=== PATIENT | male | born 1950 | race Caucasian/White ===

== ENCOUNTER → 2019-06-21 | Outpatient (CLI) | payer OTHER ==
[2019-06-21 12:57] LABS: Urine WBC None Seen /hpf (0 - 3)
[2019-06-21 13:01] LABS: Eosinophils # (auto) 0.3 uL; Eosinophils % (auto) 4.4 % (0.0-7.0); Hemoglobin 14.6 g/dL (13.5-17.5); Lymphocytes # (auto) 1.3 uL; Monocytes # (auto) 0.9 uL
[2019-06-21 13:02] LABS: Basophils # (auto) 0.1 uL; Hematocrit 44.7 % (41.0-53.0); Lymphocytes % (auto) 18.9 % (10.0-50.0); Mean Corpuscular Hemoglobin 26.3 pg (28.0-32.0); Mean Corpuscular Hgb Conc. 32.6 g/dL (32.0-36.0); Mean Corpuscular Volume 80.5 fL (80.0-100.0); Neutrophils # (auto) 4.4 uL; Neutrophils % (auto) 61.7 % (37.0-80.0); Platelet Count (auto) 394 10^3/uL (140-450); Red Blood Cells 5.56 10^6/uL (4.5-5.90); Red Cell Distribution Width 19.3 % (11.8-14.3); White Blood Cell 7.1 10^3/uL (4.4-10.8)
[2019-06-21 13:09] LABS: Urine Bacteria NONE SEEN /hpf (None Seen); Urine Blood Negative /uL (Negative); Urine Specific Gravity 1.005 (1.001-1.035)
[2019-06-21 13:30] LABS: Calcium 9.4 mg/dL (8.5-10.1); Potassium 4.8 mmol/L (3.5-5.1)
[2019-06-21 13:36] LABS: BUN/Creatinine Ratio 4.2; Bilirubin, Total 0.4 mg/dL (0.2-1.0)
== END | disposition home or self-care (01) ==
LOC: LAB 12:31
PROVIDERS: ATTEND Internal Medicine
DX: Z12.11 Encounter for screening for malignant neoplasm of colon (principal); J44.9 Chronic obstructive pulmonary disease, unspecified; E78.5 Hyperlipidemia, unspecified; E11.22 Type 2 diabetes mellitus with diabetic chronic kidney disease; N18.9 Chronic kidney disease, unspecified
CPT/HCPCS: 36415; 80053; 80061; 81001; 82043; 83036; 84153; 84154; 85025

== ENCOUNTER 2020-10-25 22:34 | Inpatient (IN) | payer OTHER ==
[~2020-10-25] VITALS: Ht 175.3 cm; Wt 88.6 kg
[2020-10-26] VITALS (7 sets, daily range): BP systolic 108–152; BP diastolic 66–80
[2020-10-26] MEDS ORDERED: ONDANSETRON HCL 4 MG/2 ML VIAL IV PRN (03:15)
[2020-10-26] MEDS ORDERED: ACETAMINOPHEN 325 MG TAB PO PRN (03:15)
[2020-10-26] MEDS ORDERED: MORPHINE SULFATE INJECTION 2 MG/ML SYRG IV PRN (03:15)
[2020-10-26] MEDS ORDERED: DOCUSATE SOD 100 MG CAP PO PRN (03:15)
[2020-10-26] MEDS ORDERED: NITROGLYCERIN 0.4 MG SL TAB SL PRN (03:15)
[2020-10-26] MEDS ORDERED: SODIUM CHL 3% 500 ML IV ONE (03:30)
[2020-10-26] MEDS ORDERED: DEXTROSE (50%) 50ML SYRG IV PRN (03:30)
[2020-10-26 05:30] LABS: Basophils # (auto) 0 10 ^3/uL (0-0.2); Basophils % (auto) 0.5 % (0.0-2.0); Eosinophils # (auto) 0.1 10 ^3/uL (0-0.8); Eosinophils % (auto) 2.2 % (0.0-7.0); Hematocrit 34.8 % (41.0-53.0); Hemoglobin 12.6 g/dL (13.5-17.5); Lymphocytes # (auto) 0.7 10 ^3/uL (0.4-5.4); Mean Corpuscular Hemoglobin 29.3 pg (28.0-32.0); Mean Corpuscular Hgb Conc. 36.1 g/dL (32.0-36.0); Mean Corpuscular Volume 81.4 fL (80.0-100.0); Monocytes # (auto) 0.9 10 ^3/uL (0-1.3); Monocytes % (auto) 14.2 % (0.0-12.0); Neutrophils # (auto) 4.4 10 ^3/uL (1.6-8.6); Neutrophils % (auto) 71.1 % (37.0-80.0); Nucleated Red Blood Cells % 0.1 %; Red Blood Cells 4.28 10^6/uL (4.5-5.90); Red Cell Distribution Width 13.4 % (11.8-14.3); White Blood Cell 6.2 10^3/uL (4.4-10.8)
[2020-10-26 05:51] LABS: Albumin 3.8 g/dL (3.4-5.0); Calcium 9.1 mg/dL (8.5-10.1); Potassium 3.7 mmol/L (3.5-5.1)
[2020-10-26 05:57] LABS: BUN/Creatinine Ratio 10.3; Bilirubin, Total 1.2 mg/dL (0.2-1.0); Total Protein 7.3 g/dL (6.4-8.2)
[2020-10-26] MEDS: ACCU-CHEK COMFORT CURVE STRIP VI SCH ×2 (06:56→11:30)
[2020-10-26] MEDS: InsuLIN REG 1unit/0.01ml Soln (100units/ml) SC SCH ×2 (06:57→11:30)
[2020-10-26] MEDS ORDERED: ZINC SULFATE 220mg CAP or TAB PO SCH (10:00)
[2020-10-26] MEDS: CLOPIDOGREL BISULFATE 75 MG TAB PO SCH (10:00)
[2020-10-26 10:55] LABS: Basophils # (auto) 0.1 10 ^3/uL (0-0.2); Basophils % (auto) 1.4 % (0.0-2.0); Eosinophils # (auto) 0.2 10 ^3/uL (0-0.8); Eosinophils % (auto) 2.8 % (0.0-7.0); Hematocrit 34.9 % (41.0-53.0); Hemoglobin 12.5 g/dL (13.5-17.5); Lymphocytes # (auto) 0.6 10 ^3/uL (0.4-5.4); Lymphocytes % (auto) 10.5 % (10.0-50.0); Mean Corpuscular Hemoglobin 29.7 pg (28.0-32.0); Mean Corpuscular Hgb Conc. 35.9 g/dL (32.0-36.0); Mean Corpuscular Volume 82.8 fL (80.0-100.0); Monocytes # (auto) 0.9 10 ^3/uL (0-1.3); Monocytes % (auto) 16.5 % (0.0-12.0); Neutrophils # (auto) 3.8 10 ^3/uL (1.6-8.6); Neutrophils % (auto) 68.8 % (37.0-80.0); Red Blood Cells 4.22 10^6/uL (4.5-5.90); Red Cell Distribution Width 13.6 % (11.8-14.3); White Blood Cell 5.6 10^3/uL (4.4-10.8)
[2020-10-26 10:58] LABS: Albumin 3.8 g/dL (3.4-5.0); Calcium 9.2 mg/dL (8.5-10.1)
[2020-10-26 11:04] LABS: BUN/Creatinine Ratio 9.9; Bilirubin, Total 1.1 mg/dL (0.2-1.0); Total Protein 7.2 g/dL (6.4-8.2)
[2020-10-26] MEDS: ASPirin 81 mg TAB PO SCH (11:42)
[2020-10-26] MEDS: ASCORBIC ACID 500 MG TAB PO SCH ×2 (11:42→21:30)
[2020-10-26] MEDS: MULTIPLE VITAMIN TAB PO SCH (11:42)
[2020-10-26] MEDS: FAMOTIDINE 20 MG TAB PO SCH ×2 (11:42→21:30)
[2020-10-26] MEDS ORDERED: SODIUM CHLORIDE 0.9% 1,000 ML IV ONE (11:45)
[2020-10-26] MEDS: METOPROLOL TARTRATE 25 MG TAB PO SCH ×2 (11:51→21:30)
[2020-10-26] MEDS ORDERED: FENO145T27 PO (17:00)
[2020-10-26] MEDS: UREA 15gm PO Powder PKG PO SCH (21:29)
[2020-10-27 05:16] VITALS: BP 130/74
[2020-10-27 07:57] LABS: Basophils # (auto) 0.1 10 ^3/uL (0-0.2); Basophils % (auto) 1.4 % (0.0-2.0); Eosinophils # (auto) 0.2 10 ^3/uL (0-0.8); Eosinophils % (auto) 3.2 % (0.0-7.0); Hematocrit 34.3 % (41.0-53.0); Hemoglobin 11.8 g/dL (13.5-17.5); Lymphocytes # (auto) 0.9 10 ^3/uL (0.4-5.4); Lymphocytes % (auto) 16.2 % (10.0-50.0); Mean Corpuscular Hemoglobin 28.7 pg (28.0-32.0); Mean Corpuscular Hgb Conc. 34.6 g/dL (32.0-36.0); Mean Corpuscular Volume 83.1 fL (80.0-100.0); Monocytes # (auto) 0.9 10 ^3/uL (0-1.3); Monocytes % (auto) 15.7 % (0.0-12.0); Neutrophils # (auto) 3.6 10 ^3/uL (1.6-8.6); Neutrophils % (auto) 63.5 % (37.0-80.0); Red Blood Cells 4.12 10^6/uL (4.5-5.90); Red Cell Distribution Width 13.8 % (11.8-14.3); White Blood Cell 5.7 10^3/uL (4.4-10.8)
[2020-10-27 08:09] LABS: Potassium 3.8 mmol/L (3.5-5.1)
[2020-10-27 08:17] LABS: Albumin 3.7 g/dL (3.4-5.0); Bilirubin, Total 1.1 mg/dL (0.2-1.0); Calcium 9.4 mg/dL (8.5-10.1)
[2020-10-27 09:00] VITALS: BP 133/72
[2020-10-27] MEDS: ASPirin 81 mg TAB PO SCH (10:19)
[2020-10-27] MEDS: ASCORBIC ACID 500 MG TAB PO SCH ×2 (10:19→21:59)
[2020-10-27] MEDS: MULTIPLE VITAMIN TAB PO SCH (10:20)
[2020-10-27] MEDS: FAMOTIDINE 20 MG TAB PO SCH ×2 (10:20→21:59)
[2020-10-27] MEDS: UREA 15gm PO Powder PKG PO SCH (10:20)
[2020-10-27] MEDS: CLOPIDOGREL BISULFATE 75 MG TAB PO SCH (10:20)
[2020-10-27] MEDS: METOPROLOL TARTRATE 25 MG TAB PO SCH ×2 (10:20→21:59)
[2020-10-27 12:30] VITALS: BP 131/72
[2020-10-27] MEDS ORDERED: AZITHROMYCIN 250 MG TAB PO ONE (12:45)
[2020-10-27] MEDS ORDERED: cefTRIAXone 1GM/50ML D5W 50 ML IV ONE (12:45)
[2020-10-27] MEDS ORDERED: ALBUTEROL SULF 2.5 MG/0.5ML(0.5%) NEB SOLN NEB PRN (14:45)
[2020-10-27 15:37] VITALS: BP 131/72
[2020-10-27 17:00] VITALS: BP 124/57
[2020-10-27 21:13] LABS: Urine Bacteria NONE SEEN /hpf (None Seen); Urine Blood Negative /uL (Negative); Urine Specific Gravity 1.016 (1.001-1.035); Urine WBC <1 /hpf (0 - 3)
[2020-10-27 22:00] VITALS: BP 132/65
[2020-10-28 05:00] VITALS: BP 128/73
[2020-10-28 08:32] LABS: Albumin 3.9 g/dL (3.4-5.0); Calcium 9.6 mg/dL (8.5-10.1); Potassium 3.6 mmol/L (3.5-5.1)
[2020-10-28 08:34] LABS: BUN/Creatinine Ratio 26.5
[2020-10-28 08:36] LABS: Bilirubin, Total 0.8 mg/dL (0.2-1.0); Total Protein 7.3 g/dL (6.4-8.2)
[2020-10-28 09:00] VITALS: BP 123/63
[2020-10-28] MEDS ORDERED: UREA 15gm PO Powder PKG GT ONE (09:00)
[2020-10-28] MEDS: cefTRIAXone 1GM/50ML D5W 50 ML IV SCH (09:17)
[2020-10-28] MEDS: FAMOTIDINE 20 MG TAB PO SCH ×2 (09:17→21:59)
[2020-10-28] MEDS: CLOPIDOGREL BISULFATE 75 MG TAB PO SCH (09:18)
[2020-10-28] MEDS: MULTIPLE VITAMIN TAB PO SCH (09:18)
[2020-10-28] MEDS: ENOXAPARIN SOD 40 MG/0.4 ML SYRINGE SC SCH (09:18)
[2020-10-28] MEDS: ASCORBIC ACID 500 MG TAB PO SCH ×2 (09:18→21:59)
[2020-10-28] MEDS: AZITHROMYCIN 250 MG TAB PO SCH (09:18)
[2020-10-28] MEDS: ASPirin 81 mg TAB PO SCH (09:18)
[2020-10-28] MEDS: METOPROLOL TARTRATE 25 MG TAB PO SCH ×2 (09:19→21:59)
[2020-10-28 13:00] VITALS: BP 124/66
[2020-10-28] MEDS: HYDROcodone-ACET 5/325MG TAB PO PRN (15:44)
[2020-10-28 16:54] VITALS: BP 133/86
[2020-10-28 22:00] VITALS: BP 114/68
[2020-10-29 05:00] VITALS: BP 117/69
[2020-10-29 06:43] LABS: Calcium 8.9 mg/dL (8.5-10.1); Potassium 3.7 mmol/L (3.5-5.1)
[2020-10-29 06:49] LABS: Albumin 3.6 g/dL (3.4-5.0); BUN/Creatinine Ratio 22.8; Bilirubin, Total 0.7 mg/dL (0.2-1.0); Total Protein 6.8 g/dL (6.4-8.2)
[2020-10-29] MEDS ORDERED: UREA 15gm PO Powder PKG PO ONE (09:00)
[2020-10-29] MEDS: METOPROLOL TARTRATE 25 MG TAB PO SCH (09:23)
[2020-10-29] MEDS: cefTRIAXone 1GM/50ML D5W 50 ML IV SCH (09:23)
[2020-10-29] MEDS: ASPirin 81 mg TAB PO SCH (09:23)
[2020-10-29] MEDS: MULTIPLE VITAMIN TAB PO SCH (09:23)
[2020-10-29] MEDS: ASCORBIC ACID 500 MG TAB PO SCH (09:24)
[2020-10-29] MEDS: CLOPIDOGREL BISULFATE 75 MG TAB PO SCH (09:24)
[2020-10-29] MEDS: AZITHROMYCIN 250 MG TAB PO SCH (09:24)
[2020-10-29] MEDS: FAMOTIDINE 20 MG TAB PO SCH (09:24)
[2020-10-29] MEDS: ENOXAPARIN SOD 40 MG/0.4 ML SYRINGE SC SCH (09:25)
[2020-10-29 09:30] VITALS: BP 129/73
[2020-10-29] MEDS ORDERED: GABAPENTIN 400 MG CAP PO ONE (10:00)
[2020-10-29] MEDS: HYDROcodone-ACET 5/325MG TAB PO PRN (10:24)
[2020-10-29] MEDS ORDERED: AZIT500T PO (12:02)
[2020-10-29] MEDS ORDERED: ALBUAER3 IN (12:02)
[2020-10-29 13:00] VITALS: BP 104/70
[2020-10-29 15:31] VITALS: BP 104/70
== END 2020-10-29 16:05 | disposition home health service (06) | DRG 70 ==
LOC: TELE-WESTW 10-26 01:53
PROVIDERS: ADMIT Internal Medicine; ATTEND Internal Medicine
DX: G93.41 Metabolic encephalopathy (principal); J18.9 Pneumonia, unspecified organism; E22.2 Syndrome of inappropriate secretion of antidiuretic hormone; I10 Essential (primary) hypertension; R29.6 Repeated falls; E11.9 Type 2 diabetes mellitus without complications; I25.10 Atherosclerotic heart disease of native coronary artery without angina pectoris; J43.9 Emphysema, unspecified; F17.210 Nicotine dependence, cigarettes, uncomplicated; F43.10 Post-traumatic stress disorder, unspecified; I71.2 Thoracic aortic aneurysm, without rupture; Z95.5 Presence of coronary angioplasty implant and graft; Z79.4 Long term (current) use of insulin; Z82.49 Family history of ischemic heart disease and other diseases of the circulatory system; Z79.899 Other long term (current) drug therapy
CPT/HCPCS: 36415; 70450; 71045; 71250; 80053; 81001; 83036; 83930; 83935; 84300; 84439; 84443; 84550; 85025; 87081; G0378; J0696

== ENCOUNTER 2020-10-30 14:13 | Emergency (ER) | payer OTHER ==
[~2020-10-30] VITALS: Ht 180.3 cm; Wt 86.2 kg
[2020-10-30 14:13] VITALS: BP 100/53
[~2020-10-30 14:13] MED LIST: ALBUAER3 IN; AZIT500T PO; FENO145T27 PO
[2020-10-30] MEDS ORDERED: SODIUM CHLORIDE 0.9% 1,000 ML IV ONE ×2 (14:15)
[2020-10-30 14:39] LABS: Basophils # (auto) 0.2 10 ^3/uL (0-0.2); Basophils % (auto) 2.4 % (0.0-2.0); Eosinophils # (auto) 0.3 10 ^3/uL (0-0.8); Eosinophils % (auto) 3.6 % (0.0-7.0); Hematocrit 33.4 % (41.0-53.0); Hemoglobin 11.3 g/dL (13.5-17.5); Lymphocytes # (auto) 1.3 10 ^3/uL (0.4-5.4); Lymphocytes % (auto) 16.3 % (10.0-50.0); Mean Corpuscular Hemoglobin 28.5 pg (28.0-32.0); Mean Corpuscular Hgb Conc. 33.9 g/dL (32.0-36.0); Mean Corpuscular Volume 84.1 fL (80.0-100.0); Monocytes # (auto) 1.3 10 ^3/uL (0-1.3); Monocytes % (auto) 15.9 % (0.0-12.0); Neutrophils % (auto) 61.8 % (37.0-80.0); Nucleated Red Blood Cells % 0.1 %; Platelet Count (auto) 381 10^3/uL (140-450); Red Blood Cells 3.97 10^6/uL (4.5-5.90); Red Cell Distribution Width 13.8 % (11.8-14.3); White Blood Cell 8.1 10^3/uL (4.4-10.8)
[2020-10-30 14:53] LABS: Albumin 3.5 g/dL (3.4-5.0); BUN/Creatinine Ratio 19.4; Calcium 8.6 mg/dL (8.5-10.1); Potassium 3.7 mmol/L (3.5-5.1)
[2020-10-30 14:57] LABS: Bilirubin, Total 0.6 mg/dL (0.2-1.0); Total Protein 6.8 g/dL (6.4-8.2)
[2020-10-30] MEDS ORDERED: ASPirin 81 mg TAB PO ONE (17:45)
[2020-10-30] MEDS ORDERED: ENOXAPARIN SOD 100 MG/1 ML SYRINGE SC ONE (17:45)
== END 2020-10-30 18:17 | disposition left against medical advice (07) ==
LOC: EDBD 14:13 → ER 14:13
DX: I95.9 Hypotension, unspecified (principal); R77.8 Other specified abnormalities of plasma proteins; E87.1 Hypo-osmolality and hyponatremia; I10 Essential (primary) hypertension; I25.10 Atherosclerotic heart disease of native coronary artery without angina pectoris; E11.9 Type 2 diabetes mellitus without complications; N40.0 Benign prostatic hyperplasia without lower urinary tract symptoms; Z87.891 Personal history of nicotine dependence; Z79.899 Other long term (current) drug therapy
CPT/HCPCS: 36415; 80053; 84484; 85025; 93005

== ENCOUNTER → 2020-11-06 | Outpatient (CLI) | payer OTHER ==
[~2020-11-06] MED LIST changes: +ASPI-231 PO; +CLOP75TA70 PO; +COEN400C8 OR; +GABA100C9 PO; +METF-370 PO; +TAMS1CAP25 PO
== END | disposition home or self-care (01) ==
LOC: LAB 10:24
PROVIDERS: ATTEND Internal Medicine
DX: E11.22 Type 2 diabetes mellitus with diabetic chronic kidney disease (principal); N18.9 Chronic kidney disease, unspecified
CPT/HCPCS: 36415; 84295

== ENCOUNTER 2020-11-07 12:06 | Inpatient (IN) | payer OTHER ==
[~2020-11-07] VITALS: Ht 175.3 cm; Wt 85.4 kg
[~2020-11-07 12:06] MED LIST changes: -ASPI-231 PO; -CLOP75TA70 PO; -COEN400C8 OR; -GABA100C9 PO; -METF-370 PO; -TAMS1CAP25 PO
[2020-11-07 13:28] LABS: Basophils # (auto) 0.1 10 ^3/uL (0-0.2); Basophils % (auto) 0.9 % (0.0-2.0); Eosinophils # (auto) 0.1 10 ^3/uL (0-0.8); Eosinophils % (auto) 0.9 % (0.0-7.0); Hematocrit 30.5 % (41.0-53.0); Hemoglobin 10.5 g/dL (13.5-17.5); Lymphocytes # (auto) 0.7 10 ^3/uL (0.4-5.4); Mean Corpuscular Hemoglobin 28.9 pg (28.0-32.0); Mean Corpuscular Hgb Conc. 34.4 g/dL (32.0-36.0); Mean Corpuscular Volume 84.1 fL (80.0-100.0); Monocytes % (auto) 12.6 % (0.0-12.0); Neutrophils # (auto) 6.3 10 ^3/uL (1.6-8.6); Neutrophils % (auto) 76.6 % (37.0-80.0); Red Blood Cells 3.63 10^6/uL (4.5-5.90); Red Cell Distribution Width 14.9 % (11.8-14.3); White Blood Cell 8.3 10^3/uL (4.4-10.8)
[2020-11-07 13:43] LABS: Albumin 3.3 g/dL (3.4-5.0); BUN/Creatinine Ratio 9.6; Calcium 8.9 mg/dL (8.5-10.1); Potassium 4.4 mmol/L (3.5-5.1)
[2020-11-07 13:48] LABS: Total Protein 7.2 g/dL (6.4-8.2)
[2020-11-07] MEDS ORDERED: ASPirin 81 mg TAB PO ONE ×2 (14:00)
[2020-11-07 14:51] LABS: INR 1.11 (0.9-1.15); Partial Thromboplastin Time 31.1 sec (23.0-31.2)
[2020-11-07] MEDS ORDERED: hydrALAZINE HCL 20 MG/ML VL IV PRN (16:00)
[2020-11-07] MEDS ORDERED: MORPHINE SULFATE INJECTION 2 MG/ML SYRG IV PRN ×2 (16:00)
[2020-11-07] MEDS ORDERED: ENOXAPARIN SOD 80 MG/0.8ML SYRINGE SC ONE (16:00)
[2020-11-07] MEDS ORDERED: NITROGLYCERIN 0.4 MG SL TAB SL PRN (16:00)
[2020-11-07] MEDS ORDERED: ACETAMINOPHEN 500 MG TAB PO PRN (16:00)
[2020-11-07] MEDS ORDERED: CLOPIDOGREL 300 MG TAB PO ONE (16:00)
[2020-11-07] MEDS ORDERED: ONDANSETRON HCL 4 MG/2 ML VIAL IV PRN (16:00)
[2020-11-07] MEDS ORDERED: FUROSEMIDE 20 MG/2 ML VIAL IV ONE (16:00)
[2020-11-07 16:42] LABS: Cholesterol 114 mg/dL (< 200)
[2020-11-07 16:44] LABS: HDL Cholesterol 44 mg/dL (40-59); LDL Cholesterol 57 mg/dL (< 100); Triglycerides 74 mg/dL (< 150)
[2020-11-07] MEDS: IPRATROPIUM BROM 0.5 MG/2.5ML INH SOL NEB SCH ×2 (17:47→22:36)
[2020-11-07] MEDS: ALBUTEROL SULF 2.5 MG/0.5ML(0.5%) NEB SOLN NEB PRN (17:48)
[2020-11-07] MEDS: TAMSULOSIN HYDROCHLORIDE 0.4 MG CAP PO SCH (18:32)
[2020-11-07 19:57] VITALS: BP 115/81
[2020-11-07 22:00] VITALS: BP 114/73
[2020-11-07] MEDS: DOCUSATE SOD 100 MG CAP PO SCH (23:02)
[2020-11-07] MEDS: ATORVASTATIN 20 MG TAB PO SCH (23:02)
[2020-11-07] MEDS: METOPROLOL TARTRATE 25 MG TAB PO SCH (23:03)
[2020-11-07 23:25] VITALS: BP 114/73
[2020-11-08 03:08] LABS: Urine Bacteria FEW /hpf (None Seen); Urine Blood Negative /uL (Negative); Urine Hyaline Cast FEW /lpf (0 - 2); Urine Mucus FEW (None Seen); Urine Specific Gravity 1.011 (1.001-1.035); Urine WBC <1 /hpf (0 - 3)
[2020-11-08] MEDS: ALBUTEROL SULF 2.5 MG/0.5ML(0.5%) NEB SOLN NEB PRN ×6 (03:42→22:06)
[2020-11-08] MEDS: IPRATROPIUM BROM 0.5 MG/2.5ML INH SOL NEB SCH ×6 (03:42→22:06)
[2020-11-08 05:00] VITALS: BP 144/91
[2020-11-08] MEDS ORDERED: LORazepam 2MG/ML-1ML VIAL IV PRN (05:15)
[2020-11-08] MEDS ORDERED: LORazepam 2MG/ML-1ML VIAL ONE (05:25)
[2020-11-08 06:00] LABS: Basophils # (auto) 0.1 10 ^3/uL (0-0.2); Basophils % (auto) 1.1 % (0.0-2.0); Eosinophils # (auto) 0.2 10 ^3/uL (0-0.8); Eosinophils % (auto) 2.2 % (0.0-7.0); Hematocrit 28.9 % (41.0-53.0); Hemoglobin 10.5 g/dL (13.5-17.5); Lymphocytes # (auto) 0.8 10 ^3/uL (0.4-5.4); Lymphocytes % (auto) 10.6 % (10.0-50.0); Mean Corpuscular Hemoglobin 30.3 pg (28.0-32.0); Mean Corpuscular Hgb Conc. 36.3 g/dL (32.0-36.0); Mean Corpuscular Volume 83.5 fL (80.0-100.0); Monocytes % (auto) 13.2 % (0.0-12.0); Neutrophils # (auto) 5.4 10 ^3/uL (1.6-8.6); Neutrophils % (auto) 72.9 % (37.0-80.0); Red Blood Cells 3.46 10^6/uL (4.5-5.90); Red Cell Distribution Width 14.8 % (11.8-14.3); White Blood Cell 7.5 10^3/uL (4.4-10.8)
[2020-11-08 06:07] LABS: INR 1.13 (0.9-1.15); Partial Thromboplastin Time 34.1 sec (23.0-31.2)
[2020-11-08 06:34] LABS: BUN/Creatinine Ratio 12.1; Calcium 8.5 mg/dL (8.5-10.1); Potassium 3.8 mmol/L (3.5-5.1)
[2020-11-08 09:00] VITALS: BP 121/75
[2020-11-08] MEDS ORDERED: ASPirin-EC 81 mg tab PO SCH (10:00)
[2020-11-08] MEDS ORDERED: CLOP75TA70 PO (10:30)
[2020-11-08] MEDS ORDERED: GABA100C9 PO (10:30)
[2020-11-08] MEDS ORDERED: FUROSEMIDE 20 MG/2 ML VIAL IV ONE (10:30)
[2020-11-08] MEDS ORDERED: ASPI1TAB20 PO (10:30)
[2020-11-08] MEDS ORDERED: TAMS1CAP25 PO (10:33)
[2020-11-08] MEDS ORDERED: METF-370 PO (10:33)
[2020-11-08] MEDS ORDERED: COEN400C8 OR (10:33)
[2020-11-08] MEDS: DOCUSATE SOD 100 MG CAP PO SCH ×2 (11:01→21:52)
[2020-11-08] MEDS: ASPirin 81 mg TAB PO SCH (11:01)
[2020-11-08] MEDS: METOPROLOL TARTRATE 25 MG TAB PO SCH ×3 (11:03→22:49)
[2020-11-08] MEDS: LISINOPRIL 10 MG TAB PO SCH (11:04)
[2020-11-08 13:00] VITALS: BP 110/62
[2020-11-08] MEDS: methylPREDNISolone SOD SUCC 40 MG/ML VL IV SCH ×2 (15:24→21:52)
[2020-11-08 17:00] VITALS: BP 100/62
[2020-11-08] MEDS: HYDROcodone-ACET 5/325MG TAB PO PRN (17:06)
[2020-11-08] MEDS: FUROSEMIDE 20 MG/2 ML VIAL IV SCH (17:06)
[2020-11-08] MEDS ORDERED: ENOXAPARIN SOD 100 MG/1 ML SYRINGE SC ONE (17:15)
[2020-11-08] MEDS: TAMSULOSIN HYDROCHLORIDE 0.4 MG CAP PO SCH (18:21)
[2020-11-08 18:41] LABS: Protein, Urine 8.6 mg/dL (0.0-11.9)
[2020-11-08] MEDS: ATORVASTATIN 20 MG TAB PO SCH (21:52)
[2020-11-08 22:00] VITALS: BP 100/60
[2020-11-09] MEDS: IPRATROPIUM BROM 0.5 MG/2.5ML INH SOL NEB SCH ×7 (01:53→22:00)
[2020-11-09 05:00] VITALS: BP 131/80
[2020-11-09] MEDS: FUROSEMIDE 20 MG/2 ML VIAL IV SCH ×2 (05:36→18:46)
[2020-11-09] MEDS: ENOXAPARIN SOD 100 MG/1 ML SYRINGE SC SCH ×2 (05:37→18:00)
[2020-11-09 06:37] LABS: BUN/Creatinine Ratio 15.2; Calcium 8.3 mg/dL (8.5-10.1)
[2020-11-09] MEDS: ALBUTEROL SULF 2.5 MG/0.5ML(0.5%) NEB SOLN NEB PRN ×5 (06:50→20:44)
[2020-11-09 08:49] VITALS: BP 105/73
[2020-11-09] MEDS ORDERED: CHOL100046 PO (08:51)
[2020-11-09] MEDS: ASPirin 81 mg TAB PO SCH (09:36)
[2020-11-09] MEDS: methylPREDNISolone SOD SUCC 40 MG/ML VL IV SCH ×2 (09:36→21:22)
[2020-11-09] MEDS: DOCUSATE SOD 100 MG CAP PO SCH ×2 (09:36→21:23)
[2020-11-09] MEDS: LISINOPRIL 10 MG TAB PO SCH (09:41)
[2020-11-09] MEDS: METOPROLOL TARTRATE 25 MG TAB PO SCH ×2 (09:41→21:24)
[2020-11-09 11:52] VITALS: BP 106/69
[2020-11-09] MEDS ORDERED: ALPRAZolam 0.5 MG TAB PO PRN (13:15)
[2020-11-09] MEDS ORDERED: LIDOCAINE 2%HCL (LOCAL ANESTH.) INJ 20ML MDV ONE (14:17)
[2020-11-09] MEDS ORDERED: IOHEXOL 350 MG/ML 100ML IJ ONE ×2 (14:17→14:31)
[2020-11-09] MEDS ORDERED: HEPARIN IN NS 1000Units/500mL 0 ML ONE (14:17)
[2020-11-09] MEDS ORDERED: ANGIOMAX 250 MG VIAL IV ONE (14:30)
[2020-11-09] MEDS ORDERED: MIDAZOLAM HCL 2MG/2ML 2ml VIAL (1mg/ml) ONE (14:30)
[2020-11-09] MEDS ORDERED: fentaNYL CITRATE 100 MCG/2 ML VL ONE (14:30)
[2020-11-09] MEDS ORDERED: SODIUM CHL 0.9% 50 ML ONE (14:30)
[2020-11-09] MEDS ORDERED: TICAGRELOR 90 MG TAB ONE (14:53)
[2020-11-09] MEDS: UREA 15gm PO Powder PKG PO SCH (15:15)
[2020-11-09] MEDS ORDERED: POTASSIUM EFFERVESENT TAB 25 MEQ PO ONE (15:15)
[2020-11-09 16:35] VITALS: BP 119/110
[2020-11-09] MEDS: TAMSULOSIN HYDROCHLORIDE 0.4 MG CAP PO SCH (18:27)
[2020-11-09 18:35] VITALS: BP 135/88
[2020-11-09] MEDS: HYDROcodone-ACET 5/325MG TAB PO PRN (18:47)
[2020-11-09] MEDS: SODIUM CHLOR 0.9% PF (SALINE LOCK) 10ML VIAL/SYR IV SCH (21:22)
[2020-11-09] MEDS: ATORVASTATIN 20 MG TAB PO SCH (21:23)
[2020-11-09 21:30] VITALS: BP 141/79
[2020-11-10] MEDS: HYDROcodone-ACET 5/325MG TAB PO PRN ×3 (01:13→17:55)
[2020-11-10 04:35] VITALS: BP 121/78
[2020-11-10] MEDS: IPRATROPIUM BROM 0.5 MG/2.5ML INH SOL NEB SCH ×5 (04:53→19:43)
[2020-11-10] MEDS: ALBUTEROL SULF 2.5 MG/0.5ML(0.5%) NEB SOLN NEB PRN ×2 (04:53→14:20)
[2020-11-10] MEDS: ENOXAPARIN SOD 100 MG/1 ML SYRINGE SC SCH (05:45)
[2020-11-10] MEDS: FUROSEMIDE 20 MG/2 ML VIAL IV SCH (05:45)
[2020-11-10] MEDS: SODIUM CHLOR 0.9% PF (SALINE LOCK) 10ML VIAL/SYR IV SCH ×3 (05:45→22:15)
[2020-11-10 06:12] LABS: BUN/Creatinine Ratio 16.9; Calcium 8.8 mg/dL (8.5-10.1); Potassium 4.6 mmol/L (3.5-5.1)
[2020-11-10 09:00] VITALS: BP 110/68
[2020-11-10] MEDS: POTASSIUM EFFERVESENT TAB 25 MEQ PO SCH (10:00)
[2020-11-10] MEDS: UREA 15gm PO Powder PKG PO SCH (10:00)
[2020-11-10] MEDS: methylPREDNISolone SOD SUCC 40 MG/ML VL IV SCH ×2 (10:00→22:33)
[2020-11-10] MEDS: LISINOPRIL 10 MG TAB PO SCH (10:00)
[2020-11-10] MEDS: METOPROLOL TARTRATE 25 MG TAB PO SCH ×2 (10:00→22:22)
[2020-11-10] MEDS: DOCUSATE SOD 100 MG CAP PO SCH ×2 (10:00→22:15)
[2020-11-10] MEDS: ASPirin 81 mg TAB PO SCH (10:00)
[2020-11-10 13:00] VITALS: BP 114/71
[2020-11-10] MEDS ORDERED: ALBUTEROL SULF 2.5 MG/0.5ML(0.5%) NEB SOLN NEB PRN (16:45)
[2020-11-10] MEDS: TAMSULOSIN HYDROCHLORIDE 0.4 MG CAP PO SCH (17:55)
[2020-11-10] MEDS: FUROSEMIDE 40 MG/4 ML VIAL IV SCH (18:03)
[2020-11-10 20:00] VITALS: BP 111/67
[2020-11-10 21:38] VITALS: BP 116/81
[2020-11-10 22:00] VITALS: BP 111/67
[2020-11-10] MEDS: ATORVASTATIN 20 MG TAB PO SCH (22:16)
[2020-11-11] MEDS: IPRATROPIUM BROM 0.5 MG/2.5ML INH SOL NEB SCH ×3 (00:49→12:00)
[2020-11-11] MEDS: HYDROcodone-ACET 5/325MG TAB PO PRN ×2 (02:06→10:19)
[2020-11-11 05:00] VITALS: BP 117/72
[2020-11-11] MEDS: FUROSEMIDE 40 MG/4 ML VIAL IV SCH (06:15)
[2020-11-11] MEDS: SODIUM CHLOR 0.9% PF (SALINE LOCK) 10ML VIAL/SYR IV SCH ×2 (06:16→14:00)
[2020-11-11 06:57] LABS: Potassium 4.3 mmol/L (3.5-5.1)
[2020-11-11 08:00] VITALS: BP 127/83
[2020-11-11 09:00] VITALS: BP 127/83
[2020-11-11] MEDS: methylPREDNISolone SOD SUCC 40 MG/ML VL IV SCH (10:16)
[2020-11-11] MEDS: DOCUSATE SOD 100 MG CAP PO SCH (10:17)
[2020-11-11] MEDS: ASPirin 81 mg TAB PO SCH (10:17)
[2020-11-11] MEDS: POTASSIUM EFFERVESENT TAB 25 MEQ PO SCH (10:17)
[2020-11-11] MEDS: METOPROLOL TARTRATE 25 MG TAB PO SCH (10:18)
[2020-11-11] MEDS: LISINOPRIL 10 MG TAB PO SCH (10:18)
[2020-11-11] MEDS: UREA 15gm PO Powder PKG PO SCH (10:18)
[2020-11-11 13:00] VITALS: BP 124/80
[2020-11-11 16:02] VITALS: BP 127/83
== END 2020-11-11 16:45 | disposition home or self-care (01) | DRG 246 ==
LOC: ER 12:06 → TELE 15:53 → TELE-WESTW 21:26
PROVIDERS: ADMIT Nurse Practitioner Acute Care; ATTEND Internal Medicine
PROC: 027034Z Dilation of Coronary Artery, One Artery with Drug-eluting Intraluminal Device, Percutaneous Approach (ICD-10-PCS; principal; 2020-11-09)
PROC: B2111ZZ Fluoroscopy of Multiple Coronary Arteries using Low Osmolar Contrast (ICD-10-PCS; 2020-11-09)
DX: T82.855A Stenosis of coronary artery stent, initial encounter (principal); I21.4 Non-ST elevation (NSTEMI) myocardial infarction; I50.43 Acute on chronic combined systolic (congestive) and diastolic (congestive) heart failure; J96.01 Acute respiratory failure with hypoxia; J18.9 Pneumonia, unspecified organism; E22.2 Syndrome of inappropriate secretion of antidiuretic hormone; I13.0 Hypertensive heart and chronic kidney disease with heart failure and stage 1 through stage 4 chronic kidney disease, or unspecified chronic kidney disease; E11.21 Type 2 diabetes mellitus with diabetic nephropathy; I25.5 Ischemic cardiomyopathy; I71.2 Thoracic aortic aneurysm, without rupture; D50.9 Iron deficiency anemia, unspecified; Z20.822 Contact with and (suspected) exposure to COVID-19; E11.22 Type 2 diabetes mellitus with diabetic chronic kidney disease; F17.210 Nicotine dependence, cigarettes, uncomplicated; I25.10 Atherosclerotic heart disease of native coronary artery without angina pectoris; Y84.0 Cardiac catheterization as the cause of abnormal reaction of the patient, or of later complication, without mention of misadventure at the time of the procedure; J43.9 Emphysema, unspecified; N18.2 Chronic kidney disease, stage 2 (mild); Z79.82 Long term (current) use of aspirin; Z79.899 Other long term (current) drug therapy; Z80.42 Family history of malignant neoplasm of prostate; Z82.49 Family history of ischemic heart disease and other diseases of the circulatory system; Z82.5 Family history of asthma and other chronic lower respiratory diseases; Z83.3 Family history of diabetes mellitus; Z95.5 Presence of coronary angioplasty implant and graft; Y92.89 Other specified places as the place of occurrence of the external cause
CPT/HCPCS: 36415; 36600; 71045; 71046; 80048; 80053; 80061; 81001; 82043; 82306; 82533; 82570; 82805; 83735; 83880; 83930; 83935; 84154; 84156; 84300; 84443; 84484; 84550; 85025; 85049; 85610; 85730; 86141; 87081; 87426; 92928; 93005; 93306; 93454; 94640; 96374; 96375; 99152; C1874; G0378; J2250

== ENCOUNTER 2020-11-15 10:18 | Inpatient (IN) | payer OTHER ==
[~2020-11-15] VITALS: Ht 175.3 cm; Wt 86.8 kg
[~2020-11-15 10:18] MED LIST changes: +ASPI1TAB20 PO; -AZIT500T PO; +CHOL100046 PO; +CLOP75TA70 PO; +COEN400C8 OR; -FENO145T27 PO; +GABA100C9 PO; +TAMS1CAP25 PO
[2020-11-15] MEDS ORDERED: SODIUM CHLORIDE 0.9% 500 ML IV ONE (10:30)
[2020-11-15 11:35] LABS: Eosinophils # (auto) 0.3 10 ^3/uL (0-0.8); Lymphocytes # (auto) 0.6 10 ^3/uL (0.4-5.4); Neutrophils # (auto) 6.5 10 ^3/uL (1.6-8.6); Red Blood Cells 4.09 10^6/uL (4.5-5.90)
[2020-11-15 11:37] LABS: Basophils # (auto) 0.1 10 ^3/uL (0-0.2); Basophils % (auto) 0.7 % (0.0-2.0); Eosinophils % (auto) 3.5 % (0.0-7.0); Hematocrit 33.5 % (41.0-53.0); Hemoglobin 11.9 g/dL (13.5-17.5); Lymphocytes % (auto) 7.4 % (10.0-50.0); Mean Corpuscular Hemoglobin 29.2 pg (28.0-32.0); Mean Corpuscular Hgb Conc. 35.6 g/dL (32.0-36.0); Mean Corpuscular Volume 81.9 fL (80.0-100.0); Monocytes # (auto) 0.9 10 ^3/uL (0-1.3); Monocytes % (auto) 10.5 % (0.0-12.0); Neutrophils % (auto) 77.9 % (37.0-80.0); Red Cell Distribution Width 14.7 % (11.8-14.3); White Blood Cell 8.4 10^3/uL (4.4-10.8)
[2020-11-15 11:47] LABS: Magnesium 1.9 mg/dL (1.6-2.6); Potassium 3.7 mmol/L (3.5-5.1)
[2020-11-15 11:57] LABS: Albumin 3.3 g/dL (3.4-5.0); BUN/Creatinine Ratio 9.4; Bilirubin, Total 0.7 mg/dL (0.2-1.0); Calcium 7.7 mg/dL (8.5-10.1)
[2020-11-15] MEDS ORDERED: SODIUM CHL 3% 500 ML IV ONE (13:00)
[2020-11-15] MEDS ORDERED: MORPHINE SULFATE INJECTION 2 MG/ML SYRG IV PRN (13:30)
[2020-11-15] MEDS ORDERED: NITROGLYCERIN 0.4 MG SL TAB SL PRN (13:30)
[2020-11-15] MEDS ORDERED: ONDANSETRON HCL 4 MG/2 ML VIAL IV PRN (14:30)
[2020-11-15] MEDS ORDERED: DEXTROSE (50%) 50ML SYRG IV PRN (14:30)
[2020-11-15] MEDS ORDERED: LACTULOSE 20Gm/30ML SOLN PO PRN (14:30)
[2020-11-15] MEDS ORDERED: traMADol HCL 50 MG TAB PO PRN (14:30)
[2020-11-15] MEDS ORDERED: ALBUTEROL SULF HFA 90MCG INH 200DOSE IN PRN (14:30)
[2020-11-15] MEDS ORDERED: ACETAMINOPHEN 500 MG TAB PO PRN (14:30)
[2020-11-15] MEDS ORDERED: ALBUTEROL SULF 2.5 MG/0.5ML(0.5%) NEB SOLN NEB PRN (14:30)
[2020-11-15] MEDS: SODIUM CHLORIDE 0.9% 1,000 ML IV SCH (15:04)
[2020-11-15 16:40] VITALS: BP 109/54
[2020-11-15] MEDS: InsuLIN REG 1unit/0.01ml Soln (100units/ml) SC SCH ×2 (17:00→21:58)
[2020-11-15] MEDS: DOXYCYCLINE 100MG/250ML 250 ML IV SCH (17:14)
[2020-11-15] MEDS: ACCU-CHEK COMFORT CURVE STRIP VI SCH ×2 (17:14→21:54)
[2020-11-15 17:32] VITALS: BP 115/66
[2020-11-15 18:21] VITALS: BP 115/66
[2020-11-15] MEDS ORDERED: FURO40TA4 PO (18:40)
[2020-11-15] MEDS ORDERED: ROSU5TAB5 PO (18:40)
[2020-11-15] MEDS ORDERED: POTA10TA32 PO (18:40)
[2020-11-15 20:00] VITALS: BP 106/67
[2020-11-15 22:00] VITALS: BP 106/67
[2020-11-15] MEDS ORDERED: TAMSULOSIN HYDROCHLORIDE 0.4 MG CAP PO SCH (22:00)
[2020-11-15] MEDS ORDERED: ATORVASTATIN 20 MG TAB PO SCH (22:00)
[2020-11-15] MEDS ORDERED: CLOPIDOGREL BISULFATE 75 MG TAB PO SCH (22:00)
[2020-11-15] MEDS: GABAPENTIN 100 MG CAP PO SCH (22:00)
[2020-11-16] MEDS: DOXYCYCLINE 100MG/250ML 250 ML IV SCH ×2 (02:51→13:34)
[2020-11-16] MEDS: SODIUM CHLORIDE 0.9% 1,000 ML IV SCH (04:20)
[2020-11-16 06:17] LABS: Basophils # (auto) 0.1 10 ^3/uL (0-0.2); Basophils % (auto) 0.9 % (0.0-2.0); Eosinophils # (auto) 0.2 10 ^3/uL (0-0.8); Eosinophils % (auto) 2.5 % (0.0-7.0); Hematocrit 30.5 % (41.0-53.0); Hemoglobin 10.9 g/dL (13.5-17.5); Lymphocytes # (auto) 0.8 10 ^3/uL (0.4-5.4); Lymphocytes % (auto) 11.7 % (10.0-50.0); Mean Corpuscular Hemoglobin 29.4 pg (28.0-32.0); Mean Corpuscular Hgb Conc. 35.7 g/dL (32.0-36.0); Mean Corpuscular Volume 82.3 fL (80.0-100.0); Monocytes # (auto) 0.8 10 ^3/uL (0-1.3); Neutrophils # (auto) 5.2 10 ^3/uL (1.6-8.6); Neutrophils % (auto) 73.9 % (37.0-80.0); Nucleated Red Blood Cells % 0.1 %; Red Blood Cells 3.71 10^6/uL (4.5-5.90); Red Cell Distribution Width 15.4 % (11.8-14.3)
[2020-11-16] MEDS: InsuLIN REG 1unit/0.01ml Soln (100units/ml) SC SCH ×3 (06:28→17:00)
[2020-11-16] MEDS: ACCU-CHEK COMFORT CURVE STRIP VI SCH ×3 (06:28→17:00)
[2020-11-16 06:37] LABS: Albumin 3.1 g/dL (3.4-5.0); Calcium 7.4 mg/dL (8.5-10.1); Potassium 3.3 mmol/L (3.5-5.1)
[2020-11-16 06:41] LABS: BUN/Creatinine Ratio 10.3; Bilirubin, Total 0.6 mg/dL (0.2-1.0); Total Protein 5.6 g/dL (6.4-8.2)
[2020-11-16 09:00] VITALS: BP 96/57
[2020-11-16] MEDS ORDERED: ENOXAPARIN SOD 40 MG/0.4 ML SYRINGE SC SCH (10:00)
[2020-11-16] MEDS ORDERED: ASPirin 81 mg TAB PO SCH (10:00)
[2020-11-16] MEDS ORDERED: ASPirin-EC 81 mg tab PO SCH (10:00)
[2020-11-16] MEDS ORDERED: FUROSEMIDE 20 MG/2 ML VIAL IV ONE (11:15)
[2020-11-16] MEDS ORDERED: POTASSIUM CHL 20 Meq TABLET PO ONE (11:15)
[2020-11-16] MEDS: GABAPENTIN 100 MG CAP PO SCH (11:38)
[2020-11-16 12:03] LABS: Urine Bacteria NONE SEEN /hpf (None Seen); Urine Blood Negative /uL (Negative); Urine Specific Gravity 1.011 (1.001-1.035); Urine WBC <1 /hpf (0 - 3)
[2020-11-16] MEDS ORDERED: UREA 15gm PO Powder PKG PO ONE (12:30)
[2020-11-16 13:00] VITALS: BP 113/55
[2020-11-16 15:32] LABS: Potassium 4.5 mmol/L (3.5-5.1)
[2020-11-16 17:04] VITALS: BP 113/55
[2020-11-16] MEDS ORDERED: UREA 15gm PO Powder PKG PO SCH ×2 (22:00)
[2020-11-17] MEDS ORDERED: FUROSEMIDE 20 MG/2 ML VIAL IV SCH (10:00)
== END 2020-11-16 18:00 | disposition home or self-care (01) | DRG 641 ==
LOC: ER 10:18 → TELE 13:18 → TELE-CENTR 15:41
PROVIDERS: ADMIT Internal Medicine; ATTEND Internal Medicine
DX: E87.1 Hypo-osmolality and hyponatremia (principal); I50.9 Heart failure, unspecified; I25.10 Atherosclerotic heart disease of native coronary artery without angina pectoris; J44.9 Chronic obstructive pulmonary disease, unspecified; F43.10 Post-traumatic stress disorder, unspecified; R91.8 Other nonspecific abnormal finding of lung field; D64.9 Anemia, unspecified; E87.2 Acidosis; E11.9 Type 2 diabetes mellitus without complications; E87.6 Hypokalemia; R07.9 Chest pain, unspecified; F17.210 Nicotine dependence, cigarettes, uncomplicated; Z20.822 Contact with and (suspected) exposure to COVID-19; I11.0 Hypertensive heart disease with heart failure; I25.5 Ischemic cardiomyopathy; Z80.42 Family history of malignant neoplasm of prostate; Z82.49 Family history of ischemic heart disease and other diseases of the circulatory system; Z82.5 Family history of asthma and other chronic lower respiratory diseases; Z83.3 Family history of diabetes mellitus; Z95.5 Presence of coronary angioplasty implant and graft
CPT/HCPCS: 36415; 36600; 71045; 80053; 81001; 82550; 82805; 82962; 83735; 83880; 84132; 84295; 84443; 84484; 85025; 85049; 87070; 87081; 87205; 87426; 93005; 96360; 96361; G0378; J1815; J3490

== ENCOUNTER → 2020-11-21 | Outpatient (CLI) | payer OTHER ==
[~2020-11-21] MED LIST changes: +ASPI-231 PO; -ASPI1TAB20 PO; +FURO40TA4 PO; +POTA10TA32 PO; +ROSU5TAB5 PO
[2020-11-21 14:33] LABS: BUN/Creatinine Ratio 17.6; Calcium 9.1 mg/dL (8.5-10.1); Potassium 4.7 mmol/L (3.5-5.1)
== END | disposition home or self-care (01) ==
LOC: LAB 14:03
PROVIDERS: ATTEND Internal Medicine
DX: E87.1 Hypo-osmolality and hyponatremia (principal)
CPT/HCPCS: 36415; 80048

== ENCOUNTER → 2020-11-28 | Outpatient (CLI) | payer OTHER ==
[2020-11-28 14:17] LABS: BUN/Creatinine Ratio 22.2; Calcium 8.5 mg/dL (8.5-10.1); Potassium 3.7 mmol/L (3.5-5.1)
== END | disposition home or self-care (01) ==
LOC: LAB 13:17
PROVIDERS: ATTEND Internal Medicine
DX: E87.1 Hypo-osmolality and hyponatremia (principal)
CPT/HCPCS: 36415; 80048

== ENCOUNTER → 2020-12-05 | Outpatient (CLI) | payer OTHER ==
[2020-12-05 14:21] LABS: BUN/Creatinine Ratio 25.7; Calcium 8.8 mg/dL (8.5-10.1); Potassium 3.2 mmol/L (3.5-5.1)
== END | disposition home or self-care (01) ==
LOC: LAB 13:37
PROVIDERS: ATTEND Internal Medicine
DX: E87.1 Hypo-osmolality and hyponatremia (principal)
CPT/HCPCS: 36415; 80048

== ENCOUNTER → 2020-12-10 | Outpatient (CLI) | payer OTHER ==
[2020-12-10 12:36] LABS: Potassium 3.4 mmol/L (3.5-5.1)
[2020-12-10 12:39] LABS: BUN/Creatinine Ratio 30.5; Calcium 8.6 mg/dL (8.5-10.1)
== END | disposition home or self-care (01) ==
LOC: LAB 10:34
PROVIDERS: ATTEND Internal Medicine
DX: E87.1 Hypo-osmolality and hyponatremia (principal)
CPT/HCPCS: 36415; 80048

== ENCOUNTER 2020-12-14 12:37 | Emergency (ER) | payer OTHER ==
[~2020-12-14] VITALS: Ht 175.3 cm; Wt 83.9 kg
[2020-12-14 12:41] VITALS: BP 113/59
[2020-12-14 13:40] LABS: Basophils # (auto) 0.1 10 ^3/uL (0-0.2); Basophils % (auto) 1.2 % (0.0-2.0); Eosinophils # (auto) 0.2 10 ^3/uL (0-0.8); Hematocrit 35.4 % (41.0-53.0); Hemoglobin 12.2 g/dL (13.5-17.5); Lymphocytes # (auto) 0.9 10 ^3/uL (0.4-5.4); Lymphocytes % (auto) 11.4 % (10.0-50.0); Mean Corpuscular Hgb Conc. 34.5 g/dL (32.0-36.0); Mean Corpuscular Volume 84.2 fL (80.0-100.0); Monocytes # (auto) 0.8 10 ^3/uL (0-1.3); Monocytes % (auto) 10.7 % (0.0-12.0); Neutrophils # (auto) 5.9 10 ^3/uL (1.6-8.6); Neutrophils % (auto) 74.7 % (37.0-80.0); Red Cell Distribution Width 17.2 % (11.8-14.3); White Blood Cell 7.9 10^3/uL (4.4-10.8)
[2020-12-14 14:01] LABS: Anion Gap 6 (5-15); Blood Urea Nitrogen 39 mg/dL (7-18); Calcium 8.2 mg/dL (8.5-10.1); Carbon Dioxide 27 mmol/L (21-32); Chloride 93 mmol/L (98-107); Glucose 217 mg/dL (74-106); Potassium 3.2 mmol/L (3.5-5.1); Sodium 126 mmol/L (136-145)
[2020-12-14 14:07] LABS: Alanine Aminotransferase 18 U/L (16-61); Alkaline Phosphatase 82 U/L (45-117); Aspartate Aminotransferase 11 U/L (15-37); BUN/Creatinine Ratio 40.2; Bilirubin, Total 0.4 mg/dL (0.2-1.0); GFR African American 98 mL/min; GFR Non-African American 81 mL/min; Total Protein 6.5 g/dL (6.4-8.2)
[2020-12-14] MEDS ORDERED: SODIUM CHLORIDE 0.9% 1,000 ML IV ONE (16:15)
== END 2020-12-14 17:03 | disposition left against medical advice (07) ==
LOC: ER 12:37
DX: E87.1 Hypo-osmolality and hyponatremia (principal); E78.5 Hyperlipidemia, unspecified; I12.9 Hypertensive chronic kidney disease with stage 1 through stage 4 chronic kidney disease, or unspecified chronic kidney disease; N18.9 Chronic kidney disease, unspecified; F17.210 Nicotine dependence, cigarettes, uncomplicated; Z90.89 Acquired absence of other organs; Z98.61 Coronary angioplasty status; Z79.899 Other long term (current) drug therapy; Z53.29 Procedure and treatment not carried out because of patient's decision for other reasons
CPT/HCPCS: 36415; 71045; 80053; 83735; 83880; 84484; 85025; 93005

== ENCOUNTER → 2020-12-21 | Outpatient (CLI) | payer OTHER | END | disposition home or self-care (01) | LOC: LAB 10:16 | PROVIDERS: ATTEND Internal Medicine | DX: E87.1 Hypo-osmolality and hyponatremia (principal) | CPT/HCPCS: 36415; 84295 ==

== ENCOUNTER 2020-12-24 11:00 | Emergency (ER) | payer OTHER ==
[~2020-12-24] VITALS: Ht 175.3 cm; Wt 90.7 kg
[2020-12-24 11:54] LABS: Basophils # (auto) 0.1 10 ^3/uL (0-0.2); Basophils % (auto) 1.3 % (0.0-2.0); Eosinophils # (auto) 0.4 10 ^3/uL (0-0.8); Eosinophils % (auto) 4.8 % (0.0-7.0); Hematocrit 37.9 % (41.0-53.0); Hemoglobin 12.8 g/dL (13.5-17.5); Lymphocytes # (auto) 1.1 10 ^3/uL (0.4-5.4); Mean Corpuscular Hemoglobin 28.9 pg (28.0-32.0); Mean Corpuscular Hgb Conc. 33.8 g/dL (32.0-36.0); Mean Corpuscular Volume 85.4 fL (80.0-100.0); Monocytes # (auto) 0.8 10 ^3/uL (0-1.3); Monocytes % (auto) 10.3 % (0.0-12.0); Neutrophils # (auto) 5.5 10 ^3/uL (1.6-8.6); Neutrophils % (auto) 69.6 % (37.0-80.0); Red Blood Cells 4.43 10^6/uL (4.5-5.90); Red Cell Distribution Width 17.3 % (11.8-14.3); White Blood Cell 7.9 10^3/uL (4.4-10.8)
[2020-12-24 12:16] LABS: Albumin 3.3 g/dL (3.4-5.0); Calcium 9.1 mg/dL (8.5-10.1); Potassium 4.7 mmol/L (3.5-5.1)
[2020-12-24 12:19] LABS: BUN/Creatinine Ratio 25.7; Bilirubin, Total 0.4 mg/dL (0.2-1.0); Total Protein 7.1 g/dL (6.4-8.2)
[2020-12-24] MEDS ORDERED: SODIUM CHLORIDE 0.9% 500 ML IV ONE (12:30)
[2020-12-24 16:10] VITALS: BP 141/76
== END 2020-12-24 16:12 | disposition home or self-care (01) ==
LOC: ER 11:00
DX: E87.1 Hypo-osmolality and hyponatremia (principal); I25.10 Atherosclerotic heart disease of native coronary artery without angina pectoris; I11.0 Hypertensive heart disease with heart failure; I50.9 Heart failure, unspecified; E78.5 Hyperlipidemia, unspecified; E11.9 Type 2 diabetes mellitus without complications; Z98.890 Other specified postprocedural states; Z90.89 Acquired absence of other organs; Z79.82 Long term (current) use of aspirin; Z79.899 Other long term (current) drug therapy; Z87.891 Personal history of nicotine dependence
CPT/HCPCS: 36415; 80053; 85025; 96360

== ENCOUNTER → 2020-12-26 | Outpatient (CLI) | payer OTHER | END | disposition home or self-care (01) | LOC: LAB 13:55 | PROVIDERS: ATTEND Internal Medicine | DX: E87.1 Hypo-osmolality and hyponatremia (principal) | CPT/HCPCS: 36415; 84295 ==

== ENCOUNTER → 2021-01-01 | Outpatient (CLI) | payer OTHER ==
[2021-01-01 15:11] LABS: Calcium 8.6 mg/dL (8.5-10.1); Potassium 3.8 mmol/L (3.5-5.1)
== END | disposition home or self-care (01) ==
LOC: LAB 14:20
PROVIDERS: ATTEND Internal Medicine
DX: E87.1 Hypo-osmolality and hyponatremia (principal)
CPT/HCPCS: 36415; 80048

== ENCOUNTER → 2021-02-12 | Outpatient (CLI) | payer OTHER | END | disposition home or self-care (01) | LOC: LAB 13:54 | PROVIDERS: ATTEND Internal Medicine | DX: E87.1 Hypo-osmolality and hyponatremia (principal) | CPT/HCPCS: 36415; 84295 ==

== ENCOUNTER → 2021-02-19 | Outpatient (CLI) | payer OTHER ==
[2021-02-19 15:09] LABS: Calcium 9.4 mg/dL (8.5-10.1); Potassium 3.4 mmol/L (3.5-5.1)
[2021-02-19 15:10] LABS: BUN/Creatinine Ratio 25.8
== END | disposition home or self-care (01) ==
LOC: LAB 14:19
PROVIDERS: ATTEND Internal Medicine
DX: E87.1 Hypo-osmolality and hyponatremia (principal)
CPT/HCPCS: 36415; 80048

== ENCOUNTER 2021-03-13 11:23 | Emergency (ER) | payer OTHER ==
[~2021-03-13] VITALS: Ht 182.9 cm; Wt 81.6 kg
[~2021-03-13 11:23] MED LIST changes: -ASPI-231 PO; +ASPI1TAB20 PO
[2021-03-13] MEDS ORDERED: SODIUM CHLORIDE 0.9% 1,000 ML IV ONE (12:30)
[2021-03-13 14:06] LABS: Basophils # (auto) 0 10 ^3/uL (0-0.2); Basophils % (auto) 0.5 % (0.0-2.0); Eosinophils # (auto) 0 10 ^3/uL (0-0.8); Eosinophils % (auto) 0.4 % (0.0-7.0); Hemoglobin 12.7 g/dL (13.5-17.5); Lymphocytes # (auto) 0.7 10 ^3/uL (0.4-5.4); Lymphocytes % (auto) 8.6 % (10.0-50.0); Mean Corpuscular Hemoglobin 27.8 pg (28.0-32.0); Mean Corpuscular Hgb Conc. 34.3 g/dL (32.0-36.0); Mean Corpuscular Volume 81.1 fL (80.0-100.0); Monocytes # (auto) 1.1 10 ^3/uL (0-1.3); Monocytes % (auto) 13.5 % (0.0-12.0); Neutrophils # (auto) 6.6 10 ^3/uL (1.6-8.6); Red Blood Cells 4.56 10^6/uL (4.5-5.90); Red Cell Distribution Width 15.6 % (11.8-14.3); White Blood Cell 8.5 10^3/uL (4.4-10.8)
[2021-03-13 14:20] LABS: Albumin 3.1 g/dL (3.4-5.0); Calcium 9.1 mg/dL (8.5-10.1)
[2021-03-13 14:22] LABS: INR 1.37 (0.9-1.15); Partial Thromboplastin Time 33.4 sec (23.6-33.0)
[2021-03-13 14:24] LABS: BUN/Creatinine Ratio 12.1; Total Protein 6.9 g/dL (6.4-8.2)
[2021-03-13] MEDS ORDERED: LORazepam 0.5 MG TAB ONE (15:05)
[2021-03-13 15:13] LABS: Potassium 2.8 mmol/L (3.5-5.1)
[2021-03-13] MEDS ORDERED: LORazepam 0.5 MG TAB PO ONE (15:15)
[2021-03-13] MEDS ORDERED: IOHEXOL 350 MG/ML 100ML IJ ONE (15:24)
[2021-03-13] MEDS ORDERED: POTASSIUM EFFERVESENT TAB 25 MEQ PO ONE (16:00)
[2021-03-13] MEDS ORDERED: cefTRIAXone 1GM/50ML D5W 50 ML IV ONE (17:45)
[2021-03-13 20:00] VITALS: BP 110/62
== END 2021-03-13 20:47 | disposition left against medical advice (07) ==
LOC: ER 11:23 → EDBD 11:23 → ER 20:47
DX: C78.01 Secondary malignant neoplasm of right lung (principal); K80.10 Calculus of gallbladder with chronic cholecystitis without obstruction; E87.6 Hypokalemia; R06.02 Shortness of breath; R53.1 Weakness; E44.1 Mild protein-calorie malnutrition; R79.1 Abnormal coagulation profile; I13.0 Hypertensive heart and chronic kidney disease with heart failure and stage 1 through stage 4 chronic kidney disease, or unspecified chronic kidney disease; N18.9 Chronic kidney disease, unspecified; I50.9 Heart failure, unspecified; I25.10 Atherosclerotic heart disease of native coronary artery without angina pectoris; J44.9 Chronic obstructive pulmonary disease, unspecified; E78.5 Hyperlipidemia, unspecified; I25.2 Old myocardial infarction; Z20.822 Contact with and (suspected) exposure to COVID-19; Z98.61 Coronary angioplasty status; Z68.24 Body mass index [BMI] 24.0-24.9, adult; Z87.891 Personal history of nicotine dependence
CPT/HCPCS: 36415; 71045; 71275; 80053; 83735; 83880; 84443; 85025; 85379; 85610; 85730; 87426; 93005; 96361; 96365; 99285; J0696; J7030; Q9967